=== PATIENT | female | born 1985 | race Two or more races ===

== ENCOUNTER 2017-10-14 07:29 | Day surgery (SDC) | payer OTHER ==
[2017-10-13 08:54] LABS: BASOPHILS # (AUTO) 0.06 x10^3/uL (0-0.1); BASOPHILS % (AUTO) 1 % (0-1); EOSINOPHILS # (AUTO) 0.17 x10^3/uL (0-0.4); EOSINOPHILS % (AUTO) 3 % (1-7); LYMPHOCYTES # (AUTO) 2.09 x10^3/uL (1-3.4); LYMPHOCYTES % (AUTO) 36 % (22-44); MD NO; MEAN CORPUSCULAR HEMOGLOBIN 28.1 pg (27.0-34.8); MEAN CORPUSCULAR HGB CONC 33.5 g/dL (32.4-35.8); MEAN CORPUSCULAR VOLUME 83.8 fL (80-100); MEAN PLATELET VOLUME 8.4 fL (7.4-10.4); MONOCYTES # (AUTO) 0.33 x10^3/uL (0.2-0.8); MONOCYTES % (AUTO) 6 % (2-9); NEUTROPHILS # (AUTO) 3.23 x10^3/uL (1.8-6.8); NEUTROPHILS % (AUTO) 55 % (42-75); PLATELET COUNT 272 x10^3/uL (130-400); RED BLOOD COUNT 5.07 x10^6/uL (3.82-5.3); RED CELL DISTRIBUTION WIDTH 13.4 % (9.6-15.2)
[2017-10-13 09:07] LABS: ALANINE AMINOTRANSFERASE 17 U/L (12-78); ALBUMIN 3.7 g/dL (3.4-5.0); ANION GAP 7 mmol/L (5-15); CALCIUM 8.8 mg/dL (8.5-10.1); CHLORIDE 106 mmol/L (98-107); CREATININE 0.82 mg/dL (0.55-1.02)
[2017-10-13 09:09] LABS: ALKALINE PHOSPHATASE 82 U/L (45-117); BILIRUBIN,TOTAL 0.4 mg/dL (0.2-1.0); TOTAL PROTEIN 8.2 g/dL (6.4-8.2)
[~2017-10-14] VITALS: Ht 162.6 cm; Wt 73.1 kg
[~2017-10-14 07:29] MED LIST: METF500T4 PO
[2017-10-14 08:03] VITALS: BP 111/80
[2017-10-14] MEDS ORDERED: LACTATED RINGERS 1,000 ML IV SCH (08:11)
[2017-10-14] MEDS ORDERED: SODIUM CHLORIDE 0.9% PF 10ML ONE (08:12)
[2017-10-14] MEDS ORDERED: FENTANYL PF 250 MCG/5ML ONE (08:12)
[2017-10-14] MEDS ORDERED: CEFAZOLIN 1,000 MG ONE ×2 (08:12)
[2017-10-14] MEDS ORDERED: ONDANSETRON 2MG/ML, 2ML ONE (08:12)
[2017-10-14] MEDS ORDERED: DEXAMETHASONE 4 MG/ML, 1ML ONE ×2 (08:12)
[2017-10-14] MEDS ORDERED: MIDAZOLAM 1 MG/ML, 2ML ONE (08:12)
[2017-10-14] MEDS ORDERED: PROPOFOL 10 MG/ML, 20ML ONE (08:12)
[2017-10-14] MEDS ORDERED: ROCURONIUM 10 MG/ML,10ML ONE (08:13)
[2017-10-14] MEDS ORDERED: LIDOCAINE-MPF 1%, 2ML ONE (08:17)
[2017-10-14 08:18] LABS: HCG UR SG 1.023 (1.003-1.030)
[2017-10-14] MEDS ORDERED: NEOSTIGMINE 1 MG/ML, 10ML ONE (08:18)
[2017-10-14] MEDS ORDERED: GLYCOPYRROLATE 0.4 MG/2 ML, 2ML ONE (08:18)
[2017-10-14] MEDS ORDERED: LIDOCAINE 1%, 2ML SQ PRN (08:30)
[2017-10-14] MEDS ORDERED: EPINEPHRINE 1 MG/ML, 1ML ONE (08:59)
[2017-10-14] MEDS ORDERED: BUPIVACAINE/PF 0.25% ONE (08:59)
[2017-10-14] MEDS ORDERED: INDIGO CARMINE 0.8%, 5ML ONE (08:59)
[2017-10-14] MEDS ORDERED: PROMETHAZINE 12.5 MG SUPP PR PRN (09:00)
[2017-10-14] MEDS ORDERED: hydrALAzine 20 MG/ML, 1ML IV PRN (09:00)
[2017-10-14] MEDS ORDERED: ACETAMINOPHEN 325 MG TABLET PO PRN (09:00)
[2017-10-14] MEDS ORDERED: LABETALOL 5MG/ML, 20ML IV PRN (09:00)
[2017-10-14] MEDS ORDERED: morphine SULFATE 10 MG/ML, 1ML IV PRN (09:00)
[2017-10-14] MEDS ORDERED: HYDROmorphone 1 MG/ML, 1ML IV PRN (09:00)
[2017-10-14] MEDS ORDERED: FENTANYL PF 100 MCG/2ML IV PRN (09:00)
[2017-10-14] MEDS ORDERED: PROMETHAZINE 25 MG/ML, 1ML IV PRN (09:00)
[2017-10-14] MEDS ORDERED: OXYcodone 5 MG/5 ML ORAL.SOL UDC PO PRN (09:00)
[2017-10-14] MEDS ORDERED: ONDANSETRON 2MG/ML, 2ML IVPush PRN (09:00)
[2017-10-14] MEDS ORDERED: MEPERIDINE/PF 25MG/0.5ML IVPush PRN (09:00)
[2017-10-14] MEDS ORDERED: KETOROLAC 30 MG/1 ML ONE (09:46)
[2017-10-14] MEDS ORDERED: ACETAMINOPHEN 650 MG/20.3 ML UDC ONE (10:44)
[2017-10-14] MEDS ORDERED: OXYcodone 5 MG/5 ML ORAL.SOL UDC ONE (10:44)
== END 2017-10-14 14:40 | disposition home or self-care (01) ==
LOC: OUT 07:29 → EDSTATUS 09:30 → OUT 14:40
PROVIDERS: ATTEND Obstetrics & Gynecology
DX: N84.0 Polyp of corpus uteri (principal); E28.2 Polycystic ovarian syndrome; N93.9 Abnormal uterine and vaginal bleeding, unspecified; Z98.890 Other specified postprocedural states; Z79.899 Other long term (current) drug therapy; Z79.84 Long term (current) use of oral hypoglycemic drugs
CPT/HCPCS: 36415; 58558; 80053; 81025; 82962; 85025; 88305; 93005; J0171; J0690; J1100; J1885; J2250; J2405; J2704; J2710; J3010; J3490; J7120

== ENCOUNTER 2018-03-31 10:55 | Day surgery (SDC) | payer OTHER ==
[~2018-03-31] VITALS: Ht 162.6 cm; Wt 74.5 kg
[~2018-03-31 10:55] MED LIST changes: -METF500T4 PO; +METF500T5 PO
[2018-03-31] MEDS ORDERED: LACTATED RINGERS 1,000 ML IV SCH (11:33)
[2018-03-31 11:39] VITALS: BP 109/77
[2018-03-31] MEDS ORDERED: PREN1TAB10 PO (11:39)
[2018-03-31 11:54] LABS: BASOPHILS # (AUTO) 0.02 x10^3/uL (0-0.1); BASOPHILS % (AUTO) 0 % (0-1); EOSINOPHILS # (AUTO) 0.14 x10^3/uL (0-0.4); EOSINOPHILS % (AUTO) 2 % (1-7); LYMPHOCYTES # (AUTO) 2.07 x10^3/uL (1-3.4); LYMPHOCYTES % (AUTO) 27 % (22-44); MD NO; MEAN CORPUSCULAR HEMOGLOBIN 28.1 pg (27.0-34.8); MEAN CORPUSCULAR HGB CONC 33.5 g/dL (32.4-35.8); MEAN CORPUSCULAR VOLUME 83.8 fL (80-100); MEAN PLATELET VOLUME 8.2 fL (7.4-10.4); MONOCYTES # (AUTO) 0.43 x10^3/uL (0.2-0.8); MONOCYTES % (AUTO) 6 % (2-9); NEUTROPHILS # (AUTO) 5.11 x10^3/uL (1.8-6.8); NEUTROPHILS % (AUTO) 66 % (42-75); PLATELET COUNT 297 x10^3/uL (130-400); RED BLOOD COUNT 4.69 x10^6/uL (3.82-5.3); RED CELL DISTRIBUTION WIDTH 14.3 % (9.6-15.2)
[2018-03-31] MEDS ORDERED: BUPIVACAINE 0.25% ONE (12:21)
[2018-03-31] MEDS ORDERED: MISOPROSTOL 200 MCG TABLET ONE (12:22)
[2018-03-31] MEDS ORDERED: SILVER NITRATE STICK TP ONE (12:22)
[2018-03-31] MEDS ORDERED: OXYTOCIN 10 UNITS/ML, 1ML ONE (12:22)
[2018-03-31] MEDS ORDERED: METHYLERGONOVINE 0.2 MG/ML IM ONE (12:22)
[2018-03-31] MEDS ORDERED: MIDAZOLAM 1 MG/ML, 2ML ONE (12:35)
[2018-03-31] MEDS ORDERED: FENTANYL PF 250 MCG/5ML ONE (12:35)
[2018-03-31] MEDS ORDERED: ONDANSETRON 2MG/ML, 2ML ONE (12:37)
[2018-03-31] MEDS ORDERED: DEXAMETHASONE 4 MG/ML, 1ML ONE ×2 (12:37)
[2018-03-31] MEDS ORDERED: PROPOFOL 10 MG/ML, 20ML ONE (12:59)
[2018-03-31] MEDS ORDERED: ACETAMINOPHEN 325 MG TABLET PO PRN (13:00)
[2018-03-31] MEDS ORDERED: OXYcodone 5 MG/5 ML ORAL.SOL UDC PO PRN (13:00)
[2018-03-31] MEDS ORDERED: MEPERIDINE/PF 25MG/0.5ML IVPush PRN (13:00)
[2018-03-31] MEDS ORDERED: ONDANSETRON ODT 8 MG PO PRN (13:00)
[2018-03-31] MEDS ORDERED: PROMETHAZINE 25 MG SUPP PR PRN (13:00)
[2018-03-31] MEDS ORDERED: FENTANYL PF 100 MCG/2ML IV PRN (13:00)
[2018-03-31] MEDS ORDERED: PROMETHAZINE 12.5 MG SUPP PR PRN (13:00)
[2018-03-31] MEDS ORDERED: MORPHINE SULFATE 4 MG/ML, 1ML IVPush PRN (13:00)
[2018-03-31] MEDS ORDERED: PROMETHAZINE 25 MG/ML, 1ML IV PRN (13:00)
[2018-03-31] MEDS ORDERED: hydrALAzine 20 MG/ML, 1ML IV PRN (13:00)
[2018-03-31] MEDS ORDERED: ONDANSETRON 2MG/ML, 2ML IV PRN (13:00)
[2018-03-31] MEDS ORDERED: LABETALOL 5MG/ML, 20ML IV PRN (13:00)
[2018-03-31] MEDS ORDERED: HYDROmorphone 1 MG/ML, 1ML IV PRN (13:00)
[2018-03-31] MEDS ORDERED: CEFAZOLIN 1,000 MG ONE ×2 (13:06)
[2018-03-31] MEDS ORDERED: WATER-INJECTION,STERILE 10 ML IV ONE (13:06)
[2018-03-31] MEDS ORDERED: KETOROLAC 30 MG/1 ML ONE (13:16)
[2018-03-31 13:43] VITALS: BP 105/76
[2018-03-31] MEDS ORDERED: ACETAMINOPHEN 650 MG/20.3 ML UDC ONE (13:53)
[2018-03-31] MEDS ORDERED: OXYcodone 5 MG/5 ML ORAL.SOL UDC ONE (13:54)
== END 2018-03-31 15:55 | disposition home or self-care (01) ==
LOC: OUT 10:55
PROVIDERS: ATTEND Obstetrics & Gynecology
DX: O02.1 Missed abortion (principal); E11.9 Type 2 diabetes mellitus without complications; Z3A.11 11 weeks gestation of pregnancy; Z98.890 Other specified postprocedural states; Z87.891 Personal history of nicotine dependence; Z79.82 Long term (current) use of aspirin; Z79.899 Other long term (current) drug therapy
CPT/HCPCS: 36415; 85025; 86850; 86900; 88305; J0690; J1100; J1885; J2250; J2405; J2704; J2790; J3010; J3490; J2210; J2590; J7120

== ENCOUNTER 2020-03-24 04:05 | Inpatient (IN) | payer OTHER ==
[~2020-03-24] VITALS: Ht 162.6 cm; Wt 79.5 kg
[~2020-03-24 04:05] MED LIST changes: +METF500T17 PO; -METF500T5 PO; +PREN1TAB10 PO
[2020-03-24] MEDS ORDERED: OXYTOCIN 30U/ 0.9% NaCL 500ML 500 ML IV PRN (06:17)
[2020-03-24] MEDS ORDERED: OXYTOCIN 30U/ 0.9% NaCL 500ML 500 ML IV ONE (06:17)
[2020-03-24] MEDS ORDERED: AMPICILLIN 2 GM in SODIUM CHLORIDE 0.9% 100 ML IVPB STA (06:17)
[2020-03-24] MEDS ORDERED: NEWBORN KIT ONE (06:21)
[2020-03-24] MEDS ORDERED: MISOPROSTOL 25 MCG TABLET ONE (06:21)
[2020-03-24] MEDS ORDERED: OXYTOCIN 30U/ 0.9% NaCL 500ML 500 ML ONE ×2 (06:21→18:58)
[2020-03-24] MEDS ORDERED: TERBUTALINE 1 MG/ML, 1ML SQ PRN (06:30)
[2020-03-24] MEDS ORDERED: FENTANYL PF 100 MCG/2ML IV PRN (06:30)
[2020-03-24] MEDS ORDERED: ONDANSETRON 2MG/ML, 2ML IVPush PRN ×2 (06:30→14:30)
[2020-03-24] MEDS ORDERED: FENTANYL PF 100 MCG/2ML IVPush PRN (06:30)
[2020-03-24] MEDS ORDERED: METOCLOPRAMIDE 5 MG/ML, 2ML IVPush PRN (06:30)
[2020-03-24] MEDS ORDERED: CALCIUM CARBONATE 500 MG TAB.CHEW PO PRN (06:30)
[2020-03-24] MEDS ORDERED: TERBUTALINE 1 MG/ML, 1ML IVPush PRN (06:30)
[2020-03-24] MEDS ORDERED: SODIUM CITRATE/CITRIC ACID 30 ML UDC PO PRN (06:30)
[2020-03-24] MEDS ORDERED: MISOPROSTOL 25 MCG TABLET VG PRN (06:30)
[2020-03-24] MEDS: AMPICILLIN 1 GM in SODIUM CHLORIDE 0.9% 100 ML IVPB SCH ×3 (06:30→14:28)
[2020-03-24] MEDS: LACTATED RINGERS 1,000 ML IV SCH ×3 (06:55→14:15)
[2020-03-24 06:56] LABS: BASOPHILS # (AUTO) 0.02 x10^3/uL (0-0.1); BASOPHILS % (AUTO) 0 % (0-1); EOSINOPHILS # (AUTO) 0.19 x10^3/uL (0-0.4); EOSINOPHILS % (AUTO) 2 % (1-7); LYMPHOCYTES # (AUTO) 1.83 x10^3/uL (1-3.4); LYMPHOCYTES % (AUTO) 21 % (22-44); MD NO; MEAN CORPUSCULAR HEMOGLOBIN 27.9 pg (27.0-34.8); MEAN CORPUSCULAR HGB CONC 32.9 g/dL (32.4-35.8); MEAN CORPUSCULAR VOLUME 84.9 fL (80-100); MEAN PLATELET VOLUME 9.4 fL (7.4-10.4); MONOCYTES # (AUTO) 0.44 x10^3/uL (0.2-0.8); MONOCYTES % (AUTO) 5 % (2-9); NEUTROPHILS # (AUTO) 6.35 x10^3/uL (1.8-6.8); NEUTROPHILS % (AUTO) 72 % (42-75); PLATELET COUNT 234 x10^3/uL (130-400); RED BLOOD COUNT 4.48 x10^6/uL (3.82-5.3)
[2020-03-24 07:08] VITALS: BP 103/71
[2020-03-24] MEDS ORDERED: FENTANYL/BUPIV./NS/PF 250 ML EPIDCONT ONE (13:39)
[2020-03-24] MEDS ORDERED: BUPIVACAINE 0.25% ONE (13:57)
[2020-03-24] MEDS ORDERED: LACTATED RINGERS 1,000 ML IV SCH (14:17)
[2020-03-24] MEDS ORDERED: FENTANYL/BUPIV./NS/PF 250 ML EPIDCONT SCH (14:17)
[2020-03-24] MEDS ORDERED: LACTATED RINGERS 1,000 ML IVBOLUS PRN (14:30)
[2020-03-24] MEDS ORDERED: DIPHENHYDRAMINE 50 MG/ML, 1ML IVPush PRN (14:30)
[2020-03-24] MEDS ORDERED: NALOXONE 0.4 MG/ML, 1ML IVPush PRN (14:30)
[2020-03-24] MEDS ORDERED: EPHEDRINE 50 MG/ML, 1ML IVPush PRN (14:30)
[2020-03-24] MEDS ORDERED: LIDOCAINE/MPF 2%-EPI 1:200K, 20 ML ONE (14:37)
[2020-03-24] MEDS: OXYTOCIN 30U/ 0.9% NaCL 500ML 500 ML IV SCH (18:44)
[2020-03-24] MEDS ORDERED: OXYTOCIN 10 UNITS/ML, 1ML IM PRN (19:00)
[2020-03-24] MEDS ORDERED: METHYLERGONOVINE 0.2 MG/ML IM PRN (19:00)
[2020-03-24] MEDS ORDERED: ACETAMINOPHEN 325 MG TABLET PO PRN (19:00)
[2020-03-24] MEDS ORDERED: MISOPROSTOL 200 MCG TABLET PR PRN (19:00)
[2020-03-24] MEDS ORDERED: SIMETHICONE 80 MG CHEW TAB PO PRN (19:00)
[2020-03-24] MEDS ORDERED: HYDROcodone/APAP 5/325 TABLET PO PRN ×2 (19:00)
[2020-03-24] MEDS ORDERED: ONDANSETRON 2MG/ML, 2ML IV PRN (19:00)
[2020-03-24] MEDS ORDERED: CARBOPROST TROMETHAMINE 250 MCG/ML, 1ML IM PRN (19:00)
[2020-03-24 21:40] VITALS: BP 96/62
[2020-03-25 01:00] VITALS: BP 96/63
[2020-03-25] MEDS: OXYTOCIN 30U/ 0.9% NaCL 500ML 500 ML IV SCH ×2 (03:37→14:44)
[2020-03-25 03:38] VITALS: BP 97/63
[2020-03-25 06:40] LABS: BASOPHILS # (AUTO) 0.03 x10^3/uL (0-0.1); BASOPHILS % (AUTO) 0 % (0-1); EOSINOPHILS % (AUTO) 1 % (1-7); LYMPHOCYTES # (AUTO) 2.04 x10^3/uL (1-3.4); LYMPHOCYTES % (AUTO) 22 % (22-44); MD NO; MEAN CORPUSCULAR HEMOGLOBIN 27.8 pg (27.0-34.8); MEAN CORPUSCULAR HGB CONC 32.5 g/dL (32.4-35.8); MEAN CORPUSCULAR VOLUME 85.5 fL (80-100); MEAN PLATELET VOLUME 9.7 fL (7.4-10.4); MONOCYTES # (AUTO) 0.51 x10^3/uL (0.2-0.8); MONOCYTES % (AUTO) 6 % (2-9); NEUTROPHILS # (AUTO) 6.57 x10^3/uL (1.8-6.8); NEUTROPHILS % (AUTO) 71 % (42-75); PLATELET COUNT 200 x10^3/uL (130-400); RED BLOOD COUNT 4.12 x10^6/uL (3.82-5.3); RED CELL DISTRIBUTION WIDTH 14.9 % (9.6-15.2)
[2020-03-25 07:30] VITALS: BP 98/60
[2020-03-25] MEDS: IBUPROFEN 600 MG TABLET PO PRN ×2 (09:09→17:42)
[2020-03-25] MEDS: PRENATAL VIT/IRON/FA 1 EACH TABLET PO SCH (09:09)
[2020-03-25] MEDS: DOCUSATE 100 MG CAPSULE PO PRN ×2 (09:09→21:14)
[2020-03-25] MEDS ORDERED: RHOGAM FROM BLOOD BANK 1 NOTE EA IM/IV ONE (09:30)
[2020-03-25 12:00] VITALS: BP 100/60
[2020-03-25 16:00] VITALS: BP 90/60
[2020-03-25 20:50] VITALS: BP 92/61
[2020-03-26] MEDS: OXYTOCIN 30U/ 0.9% NaCL 500ML 500 ML IV SCH (00:44)
[2020-03-26] MEDS: IBUPROFEN 600 MG TABLET PO PRN (01:48)
[2020-03-26 07:13] VITALS: BP 95/60
[2020-03-26] MEDS: DOCUSATE 100 MG CAPSULE PO PRN (09:38)
[2020-03-26] MEDS: PRENATAL VIT/IRON/FA 1 EACH TABLET PO SCH (09:38)
[2020-03-26] MEDS ORDERED: IBUP-1222 PO (13:15)
[2020-03-26] MEDS ORDERED: HYDR-3240 PO (13:16)
[2020-03-26] MEDS ORDERED: SENN-52 PO (13:17)
== END 2020-03-26 18:59 | disposition home or self-care (01) | DRG 807 ==
LOC: LDIP 06:15 → 2NW 20:50
PROVIDERS: ADMIT Obstetrics & Gynecology; ATTEND Obstetrics & Gynecology
PROC: 10E0XZZ Delivery of Products of Conception, External Approach (ICD-10-PCS; principal; 2020-03-24)
PROC: 0KQM0ZZ Repair Perineum Muscle, Open Approach (ICD-10-PCS; 2020-03-24)
PROC: 3E0234Z Introduction of Serum, Toxoid and Vaccine into Muscle, Percutaneous Approach (ICD-10-PCS; 2020-03-25)
DX: O99.824 Streptococcus B carrier state complicating childbirth (principal); Z37.0 Single live birth; O24.425 Gestational diabetes mellitus in childbirth, controlled by oral hypoglycemic drugs; O77.0 Labor and delivery complicated by meconium in amniotic fluid; O70.1 Second degree perineal laceration during delivery; Z3A.38 38 weeks gestation of pregnancy
CPT/HCPCS: 36415; 82947; 82962; 85025; 85461; 86592; 86762; 86850; 86900; 87340; 87635; G0378; J0290; J2790; J2590; J3010; J7120